=== PATIENT | male | born 1975 | race Caucasian/White ===

== ENCOUNTER 2016-09-17 19:05 | Emergency (ER) | payer SELFPAY ==
[~2016-09-17] VITALS: Ht 177.8 cm; Wt 103.0 kg
[2016-09-17 19:17] VITALS: BP 126/79; PULSE 64; RESP 18; TEMP 97.9; O2SAT 98
[2016-09-17] MEDS ORDERED: CLINDAMYCIN 150 MG CAP PO ONE (21:00)
[2016-09-17] MEDS ORDERED: CLIN1CAP5 PO (21:01)
--- NOTE | 2016-09-17 21:01 | PD ---
HPI Chief Complaint: Cold / Flu Symptoms Time Seen by Provider: 21:00 Travel History International Travel<30 days: No Contact w/Intl Traveler<30days: No Traveled to known affect area: No History of Present Illness HPI 40-year-old male presents to the emergency department for evaluation of right lower dental pain and swelling. States that he is had issues with his teeth for several months and intermittent pain on the right lower side. States that 2 days ago the pain worsened and he feels as though he may have an abscess. He states there has been a little bit of drainage from the area. Denies any fever , chills, nausea, vomiting, difficulty swallowing, facial swelling. He has had cough and cold symptoms recently. States he has been taking [id number] ibuprofen for his symptoms. Aggravated with eating. Denies any alleviating factors. No other complaints. PFSH Past Medical History Medical History: Denies Significant Hx Tetanus Vaccination: < 5 Years Influenza Vaccination: No Past Surgical History Tonsillectomy: Yes Social History Alcohol Use: No Tobacco Use: Yes Substance Use: No Allergies-Medications (Allergen,Severity, Reaction): Coded Allergies: Sulfa (Verified Allergy, Severe, Anaphylaxis, 09/17/16) Reported Meds & Prescriptions Reported Meds & Active Scripts Active Clindamycin (Clindamycin HCl) 150 Mg Cap 300 Mg PO Q6H 10 Days Review of Systems Except as stated in HPI: all other systems reviewed are Neg Physical Exam Narrative GENERAL: Well-nourished and well-developed pleasant patient in no acute distress who is nontoxic appearing. SKIN: Warm and dry. HEAD: Normocephalic and atraumatic. No facial swelling. EYES: No injection, drainage, or hyphema noted. PERRLA. EOMI. ENT: No nasal drainage noted. Oropharynx is clear and the TMs are normal with good landmarks. DENTAL: Multiple dental caries throughout. There is a small abscess to the right lower posterior gingiva next to tooth #32. No discharge or drainage noted. NECK: Supple and the trachea is midline. CARDIOVASCULAR: Regular rate and rhythm. RESPIRATORY: Breath sounds are equal bilaterally with no accessory muscle use, wheezing, rhonchi, or crackles. NEUROLOGICAL: Awake, alert, and oriented. Normal speech and gait. Cranial nerves are grossly intact. Data Data Last Documented VS Vital Signs Date Time Temp Pulse Resp B/P Pulse Ox O2 Delivery O2 Flow Rate FiO2 2/14/17 20:46 18 98 Room Air 09/17/16 19:17 97.9 64 126/79 Orders Clindamycin (Cleocin) (09/17/16 21:00) [facility] Medical Decision Making Medical Screen Exam Complete: Yes Emergency Medical Condition: Yes Differential Diagnosis Dental abscess versus dental infection versus pulpitis versus URI Narrative Course 40-year-old male presents to the emergency department for evaluation of right lower dental pain for 2 days. Patient is afebrile, vital signs are stable. He has a dental abscess in the right lower posterior gingiva. We'll treat the patient with clindamycin. He is instructed to follow-up with a dentist as soon as possible as an outpatient. Patient verbalizes understanding and agreement with treatment plan. Diagnosis Primary Impression: Dental abscess Referrals: Dentist Patient Instructions: Dental Abscess (ED), General Instructions Additional Instructions: Take medications as prescribed with food and a full glass of water. Follow-up with a dentist as soon as possible. Return to the ED for any acute worsening of symptoms. Med/Other Pt SpecificInfo: Prescription(s) given Scripts Clindamycin 150 Mg [id number] Mg PO Q6H 10 Days Ref 0 Prov:Tony Seymour MD 09/17/16 Disposition: 01 DISCHARGE HOME Condition: Stable Cahry Gaines Sep 17, 2016 21:01
[2016-09-17 21:18] VITALS: BP 105/59
== END 2016-09-17 21:19 | disposition home or self-care (01) ==
LOC: PHED 19:05 → PHEFT 21:19
DX: K04.7 Periapical abscess without sinus (principal); R05 Cough; Z72.0 Tobacco use
CPT/HCPCS: 99282